=== PATIENT | male | born 1990 | race Caucasian/White ===

== ENCOUNTER 2017-04-22 17:37 | Emergency (ER) | payer MEDICAID ==
[~2017-04-22] VITALS: Ht 182.8 cm; Wt 81.6 kg
[~2017-04-22 17:37] MED LIST: AMOXICILLIN500 M2 PO; AUGMENTIN 875875 MG PO; DEPAKOTE500 MG PO; IBU800 M1 PO; IBU800 MG PO; Motrin,Rufen800 MG PO; PREDNICOT20 MG PO; PREDNISONE10 MG PO; TESSALON PERLE100 M1 PO; TESSALON PERLE200 MG PO; VENTOLIN H0.09 MG/AC INH; VIBRAMYCIN100 MG PO; ZITHROMAX250 MG PO; ZOFRAN ODT4 MG SL
[2017-04-22] MEDS ORDERED: Motrin,Rufen800 MG PO (17:47)
[2017-04-22] MEDS ORDERED: CLINDAMYCIN HC300 MG PO (17:47)
== END 2017-04-22 18:20 | disposition home or self-care (01) ==
LOC: ED 17:37
DX: K08.89 Other specified disorders of teeth and supporting structures (principal); F17.200 Nicotine dependence, unspecified, uncomplicated; Z88.1 Allergy status to other antibiotic agents; Z88.6 Allergy status to analgesic agent

== ENCOUNTER 2017-10-21 21:38 | Emergency (ER) | payer MEDICAID ==
[~2017-10-21] VITALS: Ht 182.8 cm; Wt 72.6 kg
[~2017-10-21 21:38] MED LIST changes: +CLINDAMYCIN HC300 MG PO
[2017-10-21] MEDS ORDERED: Motrin,Rufen800 MG PO (22:11)
== END 2017-10-21 22:16 | disposition home or self-care (01) ==
LOC: ED 21:38
DX: M72.2 Plantar fascial fibromatosis (principal); F17.200 Nicotine dependence, unspecified, uncomplicated; Z88.1 Allergy status to other antibiotic agents; Z88.6 Allergy status to analgesic agent; Z79.899 Other long term (current) drug therapy

== ENCOUNTER 2018-04-30 16:46 | Emergency (ER) | payer MEDICAID ==
[~2018-04-30] VITALS: Wt 74.4 kg
[2018-04-30 17:07] LABS: BASO % 0.2 % (0.0-1.0); EOS % 0.5 % (1.0-4.0); HEMOGLOBIN 14.2 g/dl (14.0-18.0); LYMPH # 0.6 10*3/uL (1.3-4.4); LYMPH % 7.1 % (27.0-41.0); MEAN CELL VOLUME 87.7 fl (80.0-94.0); MEAN CORPUSCULAR HGB 29.6 pg (27.0-31.0); MEAN CORPUSCULAR HGB CONC 33.8 g/dl (33.0-37.0); MONO # 0.9 10*3/uL (0.1-1.0); MONO % 10.4 % (3.0-9.0); NEUT # 7.1 10*3/uL (2.3-7.9); NEUT % 81.2 % (47.0-73.0); PLATELET COUNT AUTOMATED 161 10*3/uL (130-400); RED BLOOD COUNT 4.79 10*6/uL (4.50-5.90); RED CELL DISTRI WIDTH 12.8 % (0-14.5); WHITE BLOOD COUNT 8.8 10*3/uL (4.8-10.8)
[2018-04-30 17:24] LABS: ALBUMIN 3.7 gm/dl (3.1-4.5); ALKALINE PHOSPHATASE 62 U/L (45-117); BUN 10 mg/dl (7-24); CHLORIDE 102 mmol/L (98-107); CREATININE 0.87 mg/dL (0.70-1.30); POTASSIUM 3.7 mmol/L (3.5-5.1); SGOT/AST 14 IU/L (3-35); SGPT/ALT 21 U/L (12-78); SODIUM 138 mmol/L (136-145)
[2018-04-30 17:25] LABS: ETHYL ALCOHOL < 3.0 mg/dl (<3); TROPONIN I < 0.015 ng/ml (<0.045)
[2018-04-30] MEDS ORDERED: NAPROSYN500 MG PO (17:31)
[2018-04-30] MEDS ORDERED: CHLORZOXAZONE500 M2 PO (17:31)
== END 2018-04-30 18:04 | disposition home or self-care (01) ==
LOC: ED 16:46
PROVIDERS: Nurse Practitioner Family
DX: M79.604 Pain in right leg (principal); R55 Syncope and collapse; Z88.1 Allergy status to other antibiotic agents; Z88.6 Allergy status to analgesic agent

== ENCOUNTER 2019-07-22 20:42 | Emergency (ER) | payer MEDICAID ==
[~2019-07-22] VITALS: Ht 182.8 cm; Wt 72.6 kg
[~2019-07-22 20:42] MED LIST changes: +CHLORZOXAZONE500 M2 PO; +NAPROSYN500 MG PO; +TAMIFLU 75MG CA75 MG PO
[2019-07-22 21:57] LABS: BASO # 0.1 10*3/uL (0.0-0.1); BASO % 0.3 % (0.0-1.0); EOS % 0.2 % (1.0-4.0); HEMOGLOBIN 15.3 g/dl (14.0-18.0); LYMPH # 1.1 10*3/uL (1.3-4.4); LYMPH % 5.8 % (27.0-41.0); MEAN CELL VOLUME 88.8 fl (80.0-94.0); MEAN CORPUSCULAR HGB 30.2 pg (27.0-31.0); MEAN PLATELET VOLUME 9.3 fl (9.6-12.3); MONO # 1.1 10*3/uL (0.1-1.0); MONO % 5.4 % (3.0-9.0); NEUT # 17.3 10*3/uL (2.3-7.9); NEUT % 87.5 % (47.0-73.0); PLATELET COUNT AUTOMATED 229 10*3/uL (130-400); RED BLOOD COUNT 5.07 10*6/uL (4.50-5.90); RED CELL DISTRI WIDTH 13.1 % (0-14.5); WHITE BLOOD COUNT 19.8 10*3/uL (4.8-10.8)
[2019-07-22 22:11] LABS: ALKALINE PHOSPHATASE 66 U/L (45-117); BUN 11 mg/dl (7-24); CHLORIDE 106 mmol/L (98-107); CREATININE 0.89 mg/dL (0.70-1.30); POTASSIUM 3.6 mmol/L (3.5-5.1); SGOT/AST 21 IU/L (3-35); SGPT/ALT 17 U/L (12-78); SODIUM 139 mmol/L (136-145); TOTAL PROTEIN 6.9 gm/dL (6.4-8.2)
[2019-07-22 22:18] LABS: ACETAMINOPHEN (TYLENOL) < 5.0 ug/ml (10-30); ETHYL ALCOHOL < 3.0 mg/dl (<3)
[2019-07-22 23:01] LABS: BILIRUBIN NEGATIVE (NEGATIVE); BLOOD NEGATIVE (NEGATIVE); CLARITY CLEAR (CLEAR); COLOR STRAW (YELLOW); GLUCOSE NEGATIVE (NEGATIVE); KETONE NEGATIVE (NEGATIVE); LEUKO ESTERASE NEGATIVE (NEGATIVE); NITRITE NEGATIVE (NEGATIVE); SPECIFIC GRAVITY <= 1.005 (1.005-1.030); UROBILINOGEN 0.2 E.U./dl (0.2-1.0)
[2019-07-22 23:10] LABS: URINE AMPHETAMINES < 1000 (1000ng/ml); URINE BARBITURATES < 200 (200ng/ml); URINE BENZODIAZEPINES < 200 (200ng/ml); URINE CANNABINOIDS (THC) > 50 (50ng/ml); URINE COCAINE < 300 (300ng/ml); URINE METHADONE < 300 (300ng/ml); URINE OPIATES < 300 (300ng/ml)
[2019-07-22 23:11] LABS: FINE GRANULAR CAST 0-2; WBC 0-2 wbc/hpf (0-5)
[2019-07-22 23:12] LABS: URINE PHENCYCLIDINE < 25 (25ng/ml)
== END 2019-07-22 23:08 ==
LOC: ED 20:42
PROVIDERS: Nurse Practitioner Family
DX: F31.9 Bipolar disorder, unspecified (principal); R45.851 Suicidal ideations; R60.0 Localized edema; F17.200 Nicotine dependence, unspecified, uncomplicated; Z88.5 Allergy status to narcotic agent; Z88.1 Allergy status to other antibiotic agents

== ENCOUNTER 2019-10-20 21:12 | Emergency (ER) | payer MEDICAID ==
[~2019-10-20] VITALS: Ht 182.8 cm; Wt 68.0 kg
[2019-10-20] MEDS ORDERED: ZITHROMAX250 MG PO (21:39)
[2019-10-20] MEDS ORDERED: MUCINEX DM 30/61 TAB PO (21:39)
== END 2019-10-20 22:52 ==
LOC: ED 21:12
DX: J20.9 Acute bronchitis, unspecified (principal); J32.9 Chronic sinusitis, unspecified; Z88.1 Allergy status to other antibiotic agents; Z88.5 Allergy status to narcotic agent

== ENCOUNTER → 2020-10-07 | Outpatient (CLI) | payer OTHER ==
[~2020-10-07] MED LIST changes: +MUCINEX DM 30/61 TAB PO
== END | disposition home or self-care (01) ==
LOC: COVID19 15:58
PROVIDERS: ATTEND Internal Medicine
DX: Z20.828 Contact with and (suspected) exposure to other viral communicable diseases (principal)

== ENCOUNTER 2021-01-21 14:37 | Emergency (ER) | payer OTHER ==
[~2021-01-21] VITALS: Ht 182.8 cm; Wt 63.5 kg
[2021-01-21 15:29] LABS: HEMATOCRIT 47.8 % (42.0-52.0); MEAN CELL VOLUME 86.9 fl (80.0-94.0); MEAN CORPUSCULAR HGB 29.5 pg (27.0-31.0); MEAN CORPUSCULAR HGB CONC 33.9 g/dl (33.0-37.0); MEAN PLATELET VOLUME 9.2 fl (9.6-12.3); PLATELET COUNT AUTOMATED 234 10*3/uL (130-400); RED CELL DISTRI WIDTH 12.7 % (0-14.5); WHITE BLOOD COUNT 13.5 10*3/uL (4.8-10.8)
[2021-01-21 15:44] LABS: ALKALINE PHOSPHATASE 70 U/L (45-117); BUN 15 mg/dl (7-24); CHLORIDE 108 mmol/L (98-107); CREATININE 0.87 mg/dL (0.70-1.30); POTASSIUM 3.8 mmol/L (3.5-5.1); SGOT/AST 16 IU/L (3-35); SGPT/ALT 18 U/L (12-78); SODIUM 142 mmol/L (136-145); TOTAL PROTEIN 7.2 gm/dL (6.4-8.2)
[2021-01-21 16:17] LABS: PLATELET SUFFICIENCY NORMAL (NORMAL); TOTAL CELLS COUNTED 100 #CELLS
== END 2021-01-21 17:05 | disposition home or self-care (01) ==
LOC: ED 14:37
PROVIDERS: Physician Assistant
DX: S80.212A Abrasion, left knee, initial encounter (principal); S80.211A Abrasion, right knee, initial encounter; R10.10 Upper abdominal pain, unspecified; F17.200 Nicotine dependence, unspecified, uncomplicated; Z79.2 Long term (current) use of antibiotics; Z88.1 Allergy status to other antibiotic agents; Z88.5 Allergy status to narcotic agent; V89.2XXA Person injured in unspecified motor-vehicle accident, traffic, initial encounter; Y93.55 Activity, bike riding; Y92.413 State road as the place of occurrence of the external cause; Y99.9 Unspecified external cause status

== ENCOUNTER 2023-07-18 17:19 | Emergency (ER) | payer OTHER ==
[~2023-07-18] VITALS: Ht 182.8 cm; Wt 81.6 kg
== END 2023-07-18 18:34 | disposition home or self-care (01) ==
LOC: ED 17:19
DX: S93.402A Sprain of unspecified ligament of left ankle, initial encounter (principal); S90.02XA Contusion of left ankle, initial encounter; F31.9 Bipolar disorder, unspecified; F90.9 Attention-deficit hyperactivity disorder, unspecified type; Z88.1 Allergy status to other antibiotic agents; Z88.5 Allergy status to narcotic agent; Z90.89 Acquired absence of other organs; Z98.890 Other specified postprocedural states; W17.89XA Other fall from one level to another, initial encounter; Y93.89 Activity, other specified; Y92.89 Other specified places as the place of occurrence of the external cause; Y99.8 Other external cause status

== ENCOUNTER 2024-09-22 10:00 | Emergency (ER) | payer OTHER ==
[~2024-09-22] VITALS: Wt 72.6 kg
[2024-09-22] MEDS ORDERED: MEDROL DOSEPAK4 MG PO (11:48)
== END 2024-09-22 11:49 | disposition home or self-care (01) ==
LOC: ED 10:00
DX: B34.9 Viral infection, unspecified (principal); Z20.822 Contact with and (suspected) exposure to COVID-19; F31.9 Bipolar disorder, unspecified; F90.9 Attention-deficit hyperactivity disorder, unspecified type; Z88.1 Allergy status to other antibiotic agents; Z88.5 Allergy status to narcotic agent; Z90.89 Acquired absence of other organs; Z98.890 Other specified postprocedural states

== ENCOUNTER → 2025-07-26 | Outpatient (CLI) | payer MEDICAID ==
[~2025-07-26] MED LIST changes: +MEDROL DOSEPAK4 MG PO
[2025-07-26 12:07] LABS: BASO # 0.1 10*3/uL (0.0-0.1); BASO % 0.5 % (0.0-1.0); EOS # 0.1 10*3/uL (0.0-0.4); EOS % 1.2 % (1.0-4.0); MEAN CELL VOLUME 90.3 fl (80.0-94.0); MEAN CORPUSCULAR HGB 29.6 pg (27.0-31.0); MEAN PLATELET VOLUME 9.4 fl (9.6-12.3); MONO # 0.8 10*3/uL (0.1-1.0); MONO % 8.9 % (3.0-9.0); NEUT # 6.0 10*3/uL (2.3-7.9); NEUT % 63.5 % (47.0-73.0); NUCLEATED RED BLOOD CELL 0.0 % (0.0-0.0); NUCLEATED RED BLOOD CELL 0.0 10*3/uL (0.0-0.0); PLATELET COUNT AUTOMATED 262 10*3/uL (130-400); RED CELL DISTRI WIDTH 13.3 % (0-14.5)
[2025-07-26 12:52] LABS: BUN 12 mg/dl (9-23); SGPT/ALT 14 U/L (5-49)
[2025-07-26 13:24] LABS: VITAMIN D, 25-HYDROXY 50.9 ng/mL (30-100)
== END | disposition home or self-care (01) ==
LOC: LAB 09:53 → RESCLI 09:53
PROVIDERS: ATTEND Family Medicine
DX: Z00.00 Encounter for general adult medical examination without abnormal findings (principal)

== ENCOUNTER → 2025-08-30 | Outpatient (CLI) | payer OTHER | END | disposition home or self-care (01) | LOC: RESCLI 02:11 | PROVIDERS: ATTEND Internal Medicine | DX: R91.1 Solitary pulmonary nodule (principal); F32.9 Major depressive disorder, single episode, unspecified; F41.9 Anxiety disorder, unspecified; Z98.890 Other specified postprocedural states; Z79.899 Other long term (current) drug therapy ==

== ENCOUNTER → 2025-09-12 | Outpatient (CLI) | payer OTHER ==
[~2025-09-12] MED LIST changes: +IOHEXOL 300 MG/ML 100 ML VIAL IV ONE; +IOHEXOL 300 MG/ML 100 ML VIAL ONE
== END | disposition home or self-care (01) ==
LOC: CT 00:46
PROVIDERS: ATTEND Family Medicine
DX: R91.1 Solitary pulmonary nodule (principal)

== ENCOUNTER → 2025-10-04 | Outpatient (CLI) | payer OTHER ==
[~2025-10-04] MED LIST changes: -IOHEXOL 300 MG/ML 100 ML VIAL IV ONE; -IOHEXOL 300 MG/ML 100 ML VIAL ONE
== END | disposition home or self-care (01) ==
LOC: RESCLI 01:36
PROVIDERS: ATTEND Internal Medicine
DX: F32.9 Major depressive disorder, single episode, unspecified (principal); F41.9 Anxiety disorder, unspecified; F17.200 Nicotine dependence, unspecified, uncomplicated; Z79.899 Other long term (current) drug therapy; Z88.8 Allergy status to other drugs, medicaments and biological substances